=== PATIENT | female | born 1940 | race Caucasian/White ===

== ENCOUNTER 2024-04-28 11:37 | Emergency (ER) | payer OTHER, SELFPAY ==
[2024-04-28 11:42] VITALS: BP 174/76
[2024-04-28 12:16] LABS: % Basophils 0.6 % (0-2); % Eosinophils 0.7 % (0-6); % Immature Granulocytes 0.2 % (0-0.5); % Lymphocytes 34.9 % (20.5-51.1); % Monocytes 14.7 % (1.7-9.3); % Neutrophils 48.9 % (42.2-75.2); Absolute Lymphocytes 1.9 10^3/uL (1.2-3.4); Absolute Monocytes 0.8 10^3/uL (0.1-0.6); Absolute Neutrophils 2.6 10^3/uL (1.4-6.5); Hematocrit 37.1 % (37.0-47.0); Hemoglobin 12.6 g/dL (12.0-16.0); Mean Corpuscular Hgb 30.6 pg (27.0-31.0); Mean Platelet Volume 11.2 fL (7.4-10.4); Nucleated Red Blood Cells % 0 %; Platelet Count 208 10^3/uL (130-400); Red Blood Cell Count 4.12 10^6/uL (4.20-5.40); Red Cell Dist. Width 12.7 % (11.5-14.5); White Blood Cell Count 5.4 10^3/uL (4.8-10.8)
[2024-04-28 12:30] LABS: Lactic Acid 1.3 mmol/L (0.7-2.0)
[2024-04-28 12:38] LABS: ALT (SGPT) 19 U/L (0-35); AST (SGOT) 23 U/L (14-36); Albumin 4.5 g/dl (3.5-5.0); Alkaline Phosphatase 57 U/L (38-126); Blood Urea Nitrogen 14 mg/dl (7-17); Calcium 9.1 mg/dl (8.4-10.2); Carbon Dioxide 27 mmol/L (22-30); Chloride 99 mmol/L (98-107); Glucose 136 mg/dl (70-99); Potassium 3.9 mmol/L (3.5-5.1); Sodium 136 mmol/L (135-145); Total Bilirubin 0.6 mg/dl (0.2-1.3); Total Protein 7.1 g/dl (6.3-8.2); eGFR > 60.00
[2024-04-28 12:49] VITALS: BMI 28.4
[2024-04-28 12:58] VITALS: BP 185/77
[2024-04-28 13:00] VITALS: BP 196/78
--- NOTE | 2024-04-28 13:25 | ED.GENMED ---
History of Present Illness
General
Chief Complaint: Breathing Problem
Source: patient and family
Exam Limitations: none
Time Seen by Provider: 04/28/24 12:43
Nursing documentation reviewed up to this point in time: agreed with
History of Present Illness
History of Present Illness:
Patient is an 83-year-old female sent by urgent care for pneumonia. Patient started with cough and cold symptoms for the past several days and has had no shortness of breath. X-ray at urgent care showed pneumonia patient was sent here. Patient
denies any chest pain. She does feel little short of breath here in the ER. She does not smoke.
No history of pulmonary disease.
No other sick contacts
Patient does have a history of A-fib and is on Eliquis. In addition she has a history of [id number] diabetes and hypertension.
Review of Systems
Review of Systems
Allergies reviewed?: Yes
All Other Systems: ROS reviewed and negative except as documented in HPI and ROS
Constitutional: Denies fever, fatigue or chills
EENT: Reports no symptoms
Respiratory: Reports cough and trouble breathing
Cardiac: Reports no symptoms
ABD/GI: Reports no symptoms
: Reports no symptoms
Musculoskeletal: Reports no symptoms
Skin: Reports no symptoms
Neurological: Reports no symptoms
Psychiatric: Reports no symptoms
Phy Exam
General Physical Exam
General Presentation: no apparent distress
General age: appears stated age
General Skin: warm and dry
General Habitus: normal
General Mental: alert
General Hydration: appears well hydrated
Cardiovascular Exam
Cardiovascular Exam: regular rate/rhythm, no murmur and normal peripheral pulses
Pulmonary Exam
Pulmonary Exam: no respiratory distress and other (+ cough /exp wheezing )
Neurological Exam
Neurological Exam: alert and oriented x3
Musculoskeletal Exam
Musculoskeletal Exam: full ROM
Skin Exam
Skin Exam: normal color and warm/dry
Scores
Heart Failure Risk
Heart Failure Risk Score: Not Applicable
Course
Orders/Labs/Results
Orders:
Orders
04/28/24 12:01
CBC/With Diff [Complete Blood Count/With Diff] Urgent
Comprehensive Metabolic Panel Urgent
Lactate Level [Lactic Acid] Urgent
04/28/24 13:24
Albuterol Nebs [Ventolin Nebules] 2.5 mg INH R NOW STA
Dexamethasone Pf [Decadron] 10 mg PO NOW STA
04/28/24 13:27
Electrocardiogram (*1) Stat
Reason for Study: Other
Other Reason for Exam: chest pain
Cardiac Monitoring- Treatment ONCE
EKG- Treatment ONCE
04/28/24 14:13
Chest [CR Chest - 2 Views ] Urgent
Comment:
Reason For Exam: sob cough
04/28/24 15:41
Ipratropium/Albuterol Sulfate [Duoneb] 3 ml INH R NOW STA
Abnormal Lab Results
04/28/24
12:01
RBC 4.12 L 10^6/uL
(4.20-5.40)
MPV 11.2 H fL
(7.4-10.4)
Absolute Monos (auto) 0.8 H 10^3/uL
(0.1-0.6)
Monocytes % 14.7 H %
(1.7-9.3)
Glucose 136 H mg/dl
(70-99)
04/28/24 12:01
04/28/24 12:01
Vital Signs
Initial and Last Documented VS:
Initial Vital Signs
Temp Pulse Resp BP Pulse Ox
99.3 F 67 16 174/76 93
04/28/24 11:42 04/28/24 11:42 04/28/24 11:42 04/28/24 11:42 04/28/24 11:42
Last Documented Vital Signs
Temp Pulse Resp BP Pulse Ox
99.3 F 83 25 183/81 89
04/28/24 11:42 04/28/24 14:00 04/28/24 14:00 04/28/24 14:00 04/28/24 14:00
MDM/Problems Addressed
Differential Diagnosis Includes:
Viral syndrome pneumonia versus bronchitis
MDM/Problems Addressed:
Patient is a 89-year-old female who has had cough for the past several days and went to urgent care today was diagnosed with pneumonia and sent to the ER. Patient has not had any fevers however she felt a little short of breath. Patient presents
here wheezing temp 99.3 however in no acute distress. Patient was given a neb and oral steroids and repeat x-ray was done as I was unable to load the x-ray in from urgent care.
1535:
On reexam patient is feeling much better after one nebulizer. she still has some scattered wheezing and ambulatory pulse ox around 92%. Patient reports she feels much better than from when she came into the hospital. She is nontoxic-appearing.
She has a normal white count. Will plan to give a DuoNeb now.
1645: Patient feeling much better ambulated and pulse ox around 92% not tachypneic and in no acute distress. Remains very nontoxic. Resting pulse ox sitting is around 94%.
Official x-ray from today's x-ray done in the ER reviewed (possible mild CHF or volume overload in the clinical) however patient has no history of CHF and exam more consistent with bronchitis. She feels well enough to go home and again reports she
feels much better.
Will DC with nebulizer and albuterol at home with steroids for the next several days . Will d/c w/ 3 d of steroids as pt is a diabetic. d/c this may increase blood sugars. will d/c with albuterol nebs and nebulizer machine. D/c w/ ED physician.
Chronic conditions affecting care:
afib on eliquis
*Radiology
Radiology exam reviewed: radiology read reviewed
*Pulse Oximetry
Patient hypoxic: no
*Critical Care Note
Total Time (30-74mins, 75-104mins- exclusive of procedures): Not Applicable
ED Attending Note
-
Portions of this chart may have been created with voice recognition software.� Occasional wrong word or��sound alike� substitutions may have occurred due to the inherent limitations of voice recognition software.
Discharge Plan
Departure
Patient Disposition: Home (Routine Discharge)
Date of Disposition: 04/28/24
Time of Disposition: 16:59
Patient with high blood pressure during this ER visit?: Yes
Condition: Fair
Covid-19: Not Applicable
Discharge Problem:
Acute bronchitis
Instructions: Acute Bronchitis, Adult (DC), BLOOD PRESSURE
Prescriptions:
New
albuterol sulfate 2.5 mg /3 mL (0.083 %) solution for nebulization
2.5 mg inhalation Q4H PRN (Reason: shortness of breath or wheezing) Qty: 90 0RF
prednisone 20 mg tablet
40 mg PO DAILY Qty: 6 0RF
Referrals:
UNKNOWN - PT DOES,NOT KNOW [Family Provider] -
Activity Restrictions/Additional Instructions:
As discussed patient should use albuterol nebulizers every 4-6 hours as needed for mild wheezing. Also a prescription was sent to the pharmacy of steroids to take for the next 3 days starting tomorrow. Closely follow-up with family doctor when
extremities for reevaluation return if any worsening of symptoms including shortness of breath/ fever chills.
Interventions
Interventions:
*Risk Screen - Suicide Last Done: 04/28/24 11:42
*General Assessment Last Done: 04/28/24 11:42
*Neglect/Abuse Screening Last Done: 04/28/24 11:42
ED- Fall Risk Assessment Last Done: 04/28/24 14:18
*ED COVID-19 Vaccine History Last Done: 04/28/24 12:50
ED- Cardiac Assessment Last Done: 04/28/24 14:18
ED- Pulmonary Assessment Last Done: 04/28/24 14:18
Discharge Date and Time
Print Language: FAROESE
[2024-04-28] MEDS: VENTOLIN NEBULES 2.5 MG INH (13:38)
[2024-04-28] MEDS: DECADRON 10 MG PO (13:39)
[2024-04-28 14:00] VITALS: BP 183/81
[2024-04-28] MEDS: DUONEB 3 ML INH (16:01)
[2024-04-28 16:10] VITALS: BP 159/57
[2024-04-28 17:00] VITALS: BP 158/69
== END 2024-04-28 18:15 | disposition home or self-care (01) ==
LOC: EMR 11:37
PROVIDERS: EMERGENCY PHYSICIAN Emergency Medicine
DX: J20.9 Acute bronchitis, unspecified (principal); E11.9 Type 2 diabetes mellitus without complications; I48.91 Unspecified atrial fibrillation; I10 Essential (primary) hypertension; Z79.01 Long term (current) use of anticoagulants
CPT/HCPCS: 99284; 94640 ×2; 71046; 80053; 83605; 85025; 93005